=== PATIENT | female | born 1980 | race Caucasian/White ===

== ENCOUNTER 2019-10-30 20:39 | Emergency (ER) | payer SELFPAY ==
[~2019-10-30 20:39] MED LIST: Iopamidol 370 76% 100 ML VIAL ONE
[2019-10-30 21:31] LABS: #Basophils 0.1 thou/uL (0.0-0.2); #Eosinphils 0.3 thou/uL (0.0-0.7); #Lymphocytes 2.2 thou/uL (1.20-3.40); #Monocytes 0.6 thou/uL (0.11-0.59); #Neutrophils 5.5 thou/uL (1.40-6.50); %Basophils 1.1 % (0.0-1.0); %Eosinophils 3.3 % (0.0-10.0); %Lymphocytes 25.5 % (21.0-51.0); %Monocytes 7.3 % (0.0-10.0); %Neutrophils 62.9 % (42.0-75.0); Mean Corpuscular HGB CONC 31.4 g/dL (32.0-36.0); Mean Corpuscular Volume 95.5 fL (78.0-98.0); Mean Platelet Volume 6.6 fL (7.4-10.4); Platelet Count 330 thou/uL (130-400); RBC Distribution Width 12.8 % (11.5-14.5); Red Blood Cell (RBC) Count 3.68 mill/uL (4.20-5.40); White Blood Cell (WBC) Count 8.7 thou/uL (4.8-10.8)
[2019-10-30 21:46] LABS: ALT (SGPT) 17 U/L (8-55); AST (SGOT) 20 U/L (5-34); Albumin 3.9 g/dL (3.5-5.0); Alkaline Phosphatase 79 U/L (40-110); Anion Gap 15 mmol/L (10-20); BUN (Urea Nitrogen) 14 mg/dL (7.0-18.7); Bilirubin, Total 0.2 mg/dL (0.2-1.2); Calc. Creatinine Clearance 0 mL/min (70-130); Calcium 8.7 mg/dL (7.8-10.44); Carbon Dioxide 21 mmol/L (22-29); Chloride 110 mmol/L (98-107); Estimated GFR-MDRD 72; Glucose 99 mg/dL (70-105); Potassium 3.7 mmol/L (3.5-5.1); Protein, Total 6.9 g/dL (6.0-8.3); Sodium 142 mmol/L (136-145)
[2019-10-30] MEDS ORDERED: Lorazepam 0.5 MG TAB PO SCH (22:15)
--- NOTE | 2019-10-31 08:28 | CT ---
PRELIMINARY REPORT/[facility]/EMERGENCY AFTER HOURS PROCEDURE EXAM: CTA ANGIO CHEST W WO CON HISTORY: R/O PE, ELEVATED D-DIMER 0.61, CHEST TIGHTNESS COMPARISON: None FINDINGS: There is suboptimal contrast material opacification of the pulmonary arterial tree secondary to contr ast bolus timing. No evidence for large or central pulmonary embolus. Thoracic aorta is normal in course and caliber. Normal four-chamber cardiac morphology, without pericardial effusion. Radially oriented linear opacities within lung bases bilaterally. No pleural effusion. No pneumotho rax. No acute abnormality of the visualized upper abdomen or osseous structures. IMPRESSION: 1. Technically limited examination secondary to suboptimal contrast bolus timing, without evidence f or large or central pulmonary embolus. 2. Radially oriented linear opacities within the lung bases bilaterally. Likely representing atelec tasis accentuated by motion artifact ELECTRONICALLY SIGNED BY: Elisha Melgar MD Oct 30, 2019 11:17:58 PM CDT This report is intended for review by the ordering physician only, in accordance of law. If you recei ve this report in error, please call [facility] at [phone]. FINAL REPORT CT ANGIO OF THE CHEST: DATE: 10/30/2019. FINDINGS: Spiral CT of the chest was done after a bolus of IV contrast for evaluation of dyspnea and elevated D -dimer. There is moderately good opacification of the pulmonary arteries. The timing of the bolus w as perhaps slightly late. Within the limitations of the study, there were no signs of emboli in the large to medium sized pulmo nary artery branches. Small peripheral emboli might be missed. There is no sign of aortic dissectio n or aneurysm. Both coronary arteries fill. No pericardial effusion was seen. The lungs are clear, except for some linear basilar streaks which are probably atelectasis. No major consolidation or effusion was seen. There is no sign of mediastinal mass or adenopathy. Slices int o the upper abdomen were unremarkable through the area scanned. IMPRESSION: Moderate sensitivity study showing no evidence of pulmonary embolism or other acute finding, aside fr om some minimal atelectasis. Report in agreement with preliminary reading by [facility]. POS: HOME
--- NOTE | 2019-10-31 08:33 | RAD ---
PORTABLE CHEST: DATE: 10/30/2019. FINDINGS: An AP portable film at 2145 shows a normal-sized heart. No major infiltrate or effusion was seen. T here is a question of some minimal basilar streaking which could be atelectasis. IMPRESSION: No significant findings. POS: HOME
== END 2019-10-30 23:46 | disposition home or self-care (01) ==
LOC: BURERS 20:39
DX: R07.9 Chest pain, unspecified (principal); J45.909 Unspecified asthma, uncomplicated; I10 Essential (primary) hypertension; F41.9 Anxiety disorder, unspecified; F17.210 Nicotine dependence, cigarettes, uncomplicated
CPT/HCPCS: 36415; 71045; 71275; 80053; 83880; 84484; 85025; 85379; 93005; Q9967